=== PATIENT | female | born 1945 | race Caucasian/White ===

== ENCOUNTER 2016-07-06 05:15 | Inpatient (IN) | payer MEDICARE, BC ==
[2016-07-06] VITALS (24 sets, daily range): BP systolic 103–127; BP diastolic 53–74; PULSE 62–112; RESP 0–19; Ht 162.6 cm; Wt 77.3 kg
[~2016-07-06] VITALS: Ht 162.6 cm; Wt 77.3 kg
[~2016-07-06 05:15] MED LIST: SAXA1TBM2 PO; SIMV40TA7
[2016-07-06] MEDS ORDERED: ROPIVACAINE 0.5 % 30 ML VIAL ONE ×2 (06:45→10:56)
[2016-07-06] MEDS ORDERED: GELATIN SIZE 100 SPONGE ONE (06:45)
[2016-07-06] MEDS ORDERED: POVIDONE IODINE 10% 28.4 GM OINT ONE (06:46)
[2016-07-06] MEDS ORDERED: POLYMYXIN/BACITRACIN 1L IRRIG ONE (06:46)
--- NOTE | 2016-07-06 06:48 | HPN ---
Date/Time of Note Date/Time of Note DATE: 07/06/16 TIME: 06:48 Interval H&P Admission Note Pt. seen H&P reviewed: No system changes ISMAEL AKINS MD Jul 06, 2016 06:48
[2016-07-06] MEDS ORDERED: ROCURONIUM 50 MG INJ ONE ×2 (07:00→08:41)
[2016-07-06] MEDS ORDERED: LOSA50TA6 PO (07:12)
[2016-07-06] MEDS ORDERED: CYCL-319 PO (07:12)
[2016-07-06] MEDS ORDERED: HYDR-2457 PO (07:12)
[2016-07-06] MEDS ORDERED: AMLO5TAB4 PO (07:12)
[2016-07-06] MEDS ORDERED: FENTAnyl 50 MCG/ML VIAL ONE ×2 (07:18→11:09)
[2016-07-06] MEDS: THROMBIN 5000 UNIT VIAL ONE ×2 (08:32→11:15)
[2016-07-06] MEDS ORDERED: LIDOCAINE 2% (SDV) 5 ML INJ ONE (08:41)
[2016-07-06] MEDS ORDERED: CEFAZOLIN 1 GM INJ ONE (08:41)
[2016-07-06] MEDS ORDERED: NEOSTIGMINE 3 MG/3 ML SYRINGE ONE (08:41)
[2016-07-06] MEDS ORDERED: SUCCINYLCHOLINE CHLORIDE 100 MG/5 ML SYG IV ONE (08:41)
[2016-07-06] MEDS ORDERED: PROPOFOL 40 ML ONE (08:41)
[2016-07-06] MEDS ORDERED: GLYCOPYRROLATE 1 MG INJ ONE (08:41)
[2016-07-06] MEDS ORDERED: CA CHLORIDE 10% 10 ML SYRINGE ONE (09:18)
[2016-07-06] MEDS ORDERED: PIPER-TAZO 3.375 GM IV (PMX) 100 ML ONE (10:17)
[2016-07-06] MEDS ORDERED: ONDANSETRON 4 MG INJ IV PRN ×2 (11:00→12:30)
[2016-07-06] MEDS ORDERED: LABETALOL HCL 20MG INJ IV PRN (11:00)
[2016-07-06] MEDS ORDERED: FENTAnyl 50 MCG/ML VIAL IV PRN ×2 (11:00)
[2016-07-06] MEDS ORDERED: DIPHENHYDRAMINE 50 MG INJ IV PRN (11:00)
[2016-07-06] MEDS ORDERED: METOCLOPRAMIDE 10 MG INJ IV PRN (11:00)
[2016-07-06] MEDS ORDERED: MEPERIDINE 25 MG INJ IV PRN (11:00)
[2016-07-06] MEDS ORDERED: HYDROmorphONE (0.2 MG/ML) 10ML SYG IV PRN ×3 (11:00)
[2016-07-06] MEDS ORDERED: hydrALAzine 20 MG INJ IV PRN (11:00)
[2016-07-06] MEDS ORDERED: PHENYLephrine (100 MCG/ML) 5ML SYG ONE (11:02)
[2016-07-06] MEDS: SOD CHLORIDE 0.9% 1,000 ML IV SCH ×3 (12:10→22:10)
--- NOTE | 2016-07-06 12:23 | RADRPT ---
PROCEDURE: Left ankle x-ray study CLINICAL INDICATION: Left ankle fusion TECHNIQUE: 5 images obtained intraoperatively during a left ankle arthrodesis fusion procedure. COMPARISON: None available FINDINGS: 5 images were obtained intraoperatively for localization during a left ankle surgical procedure. Brice rgical arthrodesis device overlying left ankle . 90 seconds of fluoroscopy used during the procedure IMPRESSION: 5 intraoperative images and 90 seconds of fluoroscopy used during left ankle fusion procedure .Edilberto Rashid MD, MD Date Time Electronically viewed and signed by .Edilberto Rashid MD, on 07/06/2016 12:22 .B/
[2016-07-06] MEDS ORDERED: BISACODYL 10 MG SUPP PR PRN (12:30)
[2016-07-06] MEDS ORDERED: DIPHENHYDRAMINE 25 MG CAP PO PRN (12:30)
[2016-07-06] MEDS ORDERED: OXYCODONE/ACETAMINOPHEN (5/325) TAB PO PRN (12:30)
[2016-07-06] MEDS ORDERED: morphine 10 MG INJ IV PRN (12:30)
[2016-07-06] MEDS: HYDROmorphONE 0.2 MG/ML PCA IV SCH ×2 (12:50→20:17)
--- NOTE | 2016-07-06 14:29 | OPR ---
DATE OF OPERATION: 07/06/2016 PREOPERATIVE DIAGNOSES: 1. 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 2. Avascular necrosis of the lateral talar dome. POSTOPERATIVE DIAGNOSES: 1. 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 2. Avascular necrosis of the lateral talar dome. OPERATION PERFORMED: 1. Bone marrow aspiration, left iliac crest. 2. Oblique fibular osteotomy and removal of the distal fibular bony portion. 3. Arthrodesis of the left ankle with a 10 x 150 mm right valor TTC nail and 4 screws. 4. Insertion of BMAC Ignite and Augment plus ground up fibular bone graft into the arthrodesis site to facilitate healing. 5. Use of fluoroscopy to verify position and alignment of the haile and screws in the fusion. 6. Short-leg cast. Extremely complex difficult procedure because the patient had a previous triple arthrodesis. She wa s in a lot of hindfoot valgus. In addition, with avascular necrosis it made very difficult to obtai n good surfaces for fusion and the anatomy was quite altered because of her previous surgery. Becau se of this complex necessitating additional of 90 minutes of time (22) SURGEON: Ismael Cabrera MD BELTING INSPECTOR: Molly Perez MD SECOND WAREHOUSE RECEIVING CLERK: Napoleon Cabrera MD NEXT WAREHOUSE RECEIVING CLERK: Marlo Miller. ANESTHESIA: General with popliteal block. TOURNIQUET TIME: 145 minutes. DESCRIPTION OF PROCEDURE: The patient taken to the operating room and placed supine. Popliteal blo ck was given. Satisfactory general anesthesia was administered, 2 grams Ancef given intravenously. The left leg was prepped and draped in the usual manner. We used a sterile tourniquet. We put a b ump under the iliac crest. A small jaki was made over the iliac crest. Needle was inserted and 60 mL of bone marrow aspirate was obtained. The wounds were irrigated with antibiotic solution and bola sed with 4-0 black nylon. A sterile dressing was applied. Gloves were changed. Tourniquet was inflated to 250 mmHg. Incision was made over the distal fibula, being careful not to join to the previous lateral incision per her plastic surgeon. Dissection car ried down to subcutaneous tissue. The periosteum was elevated anteriorly and posteriorly. The liga ments were released along the fibula until the entire fibular could be removed will be used for bone graft later on. An extensive amount of soft tissue was removed from the ankle joint. Laminar spre ader was inserted. Osteophytes were removed from the ankle anteriorly and posteriorly. The area of avascular necrosis of the lateral talar dome was noted. Using different angled curettes on the paradise us first, all the articular cartilage was removed and all the avascular area was removed. To ensure that we got all the bone or cartilage off and medialize the ankle, a second incision was made in me dial malleolus. Periosteum was elevated. We removed all articular cartilage of the medial malleolu s, medial aspect of the talar dome and across the talus. A bur was then used to remove approximatel y 1 mm of bone across the talus from medial to lateral. Multiple "spot welds" were placed with the bur to facilitate healing. The entire cyst in the avascular area was removed. Multiple drill holes were made with 0.045 K-wire and multiple osteotome cuts were made as well. Similarly, the tibia wa s prepared in the same way using first a curet to remove all the arthritic cartilage, then a bur to remove the bone, multiple spot welds were made and then drill holes were placed with 0.045 K-wire an d then an osteotome was used to shingle the tibia as well. The fluoroscope was brought in. We used the bone mill to grind up the fibula. We mixed the fibula with PRP and bone marrow aspirate and then added Augment to try to get it to heal since she has trou ble healing bones. The guide pin was inserted for the [facility] nail. We medialized the ankle all the way to get her out of valgus. We were able to stay within the shaft of the distal ti jazz and still stay in the calcaneus. It was checked in AP and lateral positions. Good position was noted. A TTC nail was drilled to about 200 mm. We felt it would be too tight to put a nail that h igh. We drilled it to 10.5 mm so we could put a 10 mm x 150 mm haile. Prior to putting in the haile, o ur bone marrow slurry mixture was placed on the tibia and the talus. The haile was inserted, checked in AP and lateral planes and excellent position was obtained. The dynamic screw was placed proximal ly in the tibia from medial and lateral, checked in both planes and looked good. The calcaneal scre w was then placed from lateral to medial, and also looked good in both planes. The haile was then com pressed with a special compression device. Our calcaneal pin was then inserted after being drilled. We packed further bone graft into both sides and then put the calcaneal pin in and then put our ca lcaneal screw in and then our subtalar screw. When we were done, final fluoroscopic view showed good position and alignment of the screws and the haile in the AP and lateral position with excellent compression off the arthrodesis site. A cap was p laced on the haile distally and verified it was in. Final fluoroscopic views looked good in both plan es. The tourniquet was released. Bone graft was then added anteriorly, medially and laterally and posteriorly. The deep tissues were closed medially and laterally after irrigating with antibiotic s olution over a lap, sponge. These were closed with 0 PDS. Subcutaneous tissues closed with 2-0 and 3-0 undyed Vicryl, and the skin was closed with 4-0 black nylon interrupted. Compression dressing was applied as well as short-leg cast in neutral position. At the end of procedure, the sponge and needle count was correct. Patient tolerated procedure well The iliac crest wound was closed as mentioned with 4-0 black nylon and then 4 x 4 was placed over it as well as an ABD and Tegaderm. The cast was then split in the recovery room. WAREHOUSE RECEIVING CLERK ORTHOPEDIC SURGEON DURING THE PROCEDURE: An assistant art director orthopedic surgeon was used at my r equest. The assistant art director helped with exposure. The assistant art director also inserted the nail while I held the ankle reduced in proper position. Without a skilled orthopedic surgeon assisting me, this could not have been performed and should be compensated appropriately. Dictated By: ISMAEL MACK/BELL Conf#: [id number] DID#: [id number]
[2016-07-06] MEDS ORDERED: AMLODIPINE 5 MG TAB PO ONE (17:30)
[2016-07-06] MEDS: PIPER-TAZO 3.375 GM IV (PMX) 100 ML IVPB SCH (17:34)
[2016-07-06] MEDS ORDERED: GLUCAGON 1 MG INJ IM PRN (18:30)
[2016-07-06] MEDS ORDERED: DEXTROSE 50% 50 ML SYRINGE IV PRN ×2 (18:30)
[2016-07-06] MEDS ORDERED: GLUCOSE GEL 15 GRAM TUBE PO PRN ×2 (18:30)
[2016-07-06] MEDS ORDERED: GLUCOSE GEL 15 GRAM TUBE BUCCAL PRN (18:30)
--- NOTE | 2016-07-06 18:49 | CONS ---
DATE OF ADMISSION: 07/06/2016 DATE OF CONSULTATION: TYPE OF CONSULTATION: Medical. Thank you, Dr. Cabrera, for asking me to participate in the medical management of this patient. REASON FOR CONSULTATION: To manage the patient's hypertension, diabetes mellitus and hyperlipidemia . HISTORY OF PRESENT ILLNESS: This 71-year-old female is now postop a left ankle surgery. The rosibel poole underwent a surgery today performed by Dr. Kevyn Cabrera. The patient had an arthrodesis of the left ankle with a 10 x 50 mm right Valor TTC nail and 4 screws. The patient has a history of previo us left ankle surgery. She has had pain in her left ankle after a triple arthrodesis for degenerati ve joint disease and posterior tibial tendon dysfunction done in 07/2015. Postoperatively, the ronald trimble's wound had recurrent drainage and was found to have an infection. She was taken again to [facility] on 02/29/2016 for hardware removal, debridement and was closed by a plastic surgeon. She was on 8 weeks of IV antibiotics. The patient said that she did develop an infection with C difficile. Sarah najera is under the care of an infectious disease specialist in [place] named Dr. Cohen. The whitney cortes did undergo the above-mentioned surgery today by Dr. Cabrera. She is awake and alert. Her sean n is under control. She denies any chest pain or shortness of breath. PAST MEDICAL HISTORY: Hypertension, type 2 diabetes mellitus, hyperlipidemia. ALLERGIES: SHE HAS AN ALLERGY TO ASPIRIN. MEDICATIONS: Include the followin. Simvastatin 40 mg a day. 2. Losartan 50 mg twice a day. 3. Amlodipine 5 mg a day. 4. Simvastatin 40 mg a day. 5. Kombiglyze 2.10/999 mg twice a day. PAST SURGICAL HISTORY: Right ankle triple arthrodesis in 2009, multiple surgeries on left ankle as mentioned above. FAMILY HISTORY: Father of emphysema at 61. Mother at 92 of unknown causes. She had 1 si yajaira with chronic leukemia, 1 with diabetes mellitus and 1 with hypertension. SOCIAL HISTORY: She is , does not drink alcohol, never smoked. PHYSICAL EXAMINATION: GENERAL: At this time reveals a well-developed female in no apparent distress. VITAL SIGNS: Temperature 98, pulse is 77, respirations 16, blood pressure 113/62, O2 saturation of 98% on 2 L nasal cannula. HEAD: Normocephalic. EYES: Extraocular muscles intact. NOSE AND MOUTH: Normal. NECK: Supple. No neck vein distention. LUNGS: Clear to auscultation. HEART: Regular rhythm. No murmurs, gallops or rubs. ABDOMEN: Soft, nontender. EXTREMITIES: She has a large cast on her left ankle and foot. Right leg, there is no edema. IMPRESSION: This patient is now postoperative a left ankle surgery including arthrodesis and a nail insertion. She is awake and alert, and her pain is under control. I will manage the patient's hyp ertension, type 2 diabetes mellitus and hyperlipidemia. PLAN: 1. Resume some routine medications. 2. Check labs in the morning. 3. Postop left ankle arthrodesis surgery protocol. 4. I will follow the patient along with you medically. Dictated By: DENIZ MCCALLUM MD, ND/BELL Conf#: [id number] DID#: [id number]
[2016-07-06] MEDS: SENNA/DOCUSATE NA (8.6MG/50MG) TAB PO SCH (20:19)
[2016-07-06] MEDS: ATORVASTATIN 20 MG TAB PO SCH (20:19)
[2016-07-06] MEDS: OXYCODONE/ACETAMINOPHEN (5/325) TAB PO PRN (20:22)
[2016-07-06] MEDS: INSULIN ASPART [NOVOLOG] 3 ML PEN SC SCH (20:25)
[2016-07-07] MEDS: PIPER-TAZO 3.375 GM IV (PMX) 100 ML IVPB SCH ×4 (00:15→17:31)
[2016-07-07] MEDS: OXYCODONE/ACETAMINOPHEN (5/325) TAB PO PRN ×4 (00:15→14:59)
[2016-07-07] MEDS: SOD CHLORIDE 0.9% 1,000 ML IV SCH ×2 (00:18→17:33)
[2016-07-07] MEDS: ACCUCHECK XX SCH (00:29)
[2016-07-07 05:34] VITALS: BP 105/62; PULSE 95; RESP 19
[2016-07-07 05:49] LABS: ALBUMIN 3.2 g/dl (3.3-4.9); POTASSIUM 4.2 mmol/L (3.5-5.1)
[2016-07-07 05:51] LABS: BILIRUBIN,INDIRECT 0.4 mg/dl (0-1.1); BILIRUBIN,TOTAL 0.4 mg/dl (0.2-1.3); CREATININE 0.87 mg/dl (0.44-1.00)
[2016-07-07 05:52] LABS: ALBUMIN/GLOBULIN RATIO 1.14
[2016-07-07 05:53] LABS: CALCIUM 8.5 mg/dl (8.4-10.2)
[2016-07-07 06:23] LABS: BASOPHILS % 0.2 % (0.0-2.0); EOSINOPHILS # 0.1 10^3/ul (0.0-0.5); EOSINOPHILS % 1.1 % (0.0-7.0); HEMATOCRIT 25.3 % (37.0-47.0); HEMOGLOBIN 8.5 g/dl (12.0-16.0); LYMPHOCYTES # 0.7 10^3/ul (0.8-2.9); LYMPHOCYTES % 11.9 % (15.0-51.0); MEAN CORPUSCULAR HGB CONC 33.6 g/dl (32.0-37.0); MEAN CORPUSCULAR VOLUME 83.3 fl (82.0-101.0); MEAN PLATELET VOLUME 8.1 fl (7.4-10.4); MONOCYTE # 0.8 10^3/ul (0.3-0.9); MONOCYTES % 13.1 % (0.0-11.0); NEUTROPHIL # 4.5 10^3/ul (1.6-7.5); NEUTROPHILS % 73.7 % (39.0-77.0); PLATELET COUNT 195 10^3/UL (140-440); RED BLOOD COUNT 3.04 10^6/ul (4.20-5.40); RED CELL DISTRIBUTION WIDTH 15.1 % (11.5-14.5); UNCORRECTED WBC 6.1 10^3/ul (4.8-10.8); WHITE BLOOD COUNT 6.1 10^3/ul (4.8-10.8)
[2016-07-07 06:37] LABS: CONDITION 1; LH ANALYZER COMMENTS 1
--- NOTE | 2016-07-07 07:13 | PN ---
Date/Time of Note Date/Time of Note DATE: 07/07/16 TIME: 07:08 Assessment/Plan VTE Prophylaxis VTE Prophylaxis Intervention: anti-embolic stocking, other Lines/Catheters IV Catheter Type (from Nrsg): Peripheral IV Urinary Cath still in place: No Assessment/Plan Chief Complaint/Hosp Course #1 POD1 s/p left ankle TTC fusion nail placement #2 DM type 2 Problems: Assessment/Plan - Doing well - Hgb 8.5, will monitor for now as asymptomatic, hx of pernicious anemia - Continue close blood glucose monitoring, goal <150 - NWB LLE - PT to begin this AM - Wean from FIELD PIPELINES SUPERVISOR when patient comfortable with converting to orals - Likely d/c tomorrow - Xarelto for DVT prophy - Zosyn for postop prophy until conversion to orals -Appreciate Dr. Brody's assistance. - Subjective 24 Hr Interval Summary Free Text/Dictation Pt. did well overnight. Moderate pain was reasonably controlled with FIELD PIPELINES SUPERVISOR. Blood Glucose <162. Denies CP,SOB, contralateral leg pain. Exam/Review of Systems Vital Signs Vitals Vital Signs Date Time Temp Pulse Resp B/P Pulse Ox O2 Delivery O2 Flow Rate FiO2 07/07/16 05:34 98.3 95 19 105/62 100 Nasal Cannula 2.0 Intake and Output 07/06/16 07/06/16 07/07/16 15:00 23:00 07:00 Intake Total 1500 ml 300 ml 2600 ml Output Total 550 ml 1200 ml Balance 950 ml 300 ml 1400 ml Exam LLE elevated on wedge. Cast fitting well. Moderate amount of strikethrough on the posterior aspect of the cast. Toes are wwp. Wiggling in DF/PF without difficulty, no pain with passive stretch. Sensation intact in SP/DP/Tibial. Constitutional: alert, oriented, well developed Cardiovascular: regular rate and rhythm Results Result Diagram: 07/07/16 0450 07/07/16 0450 Results 24 hrs Laboratory Tests Test 07/06/16 18:23 07/06/16 20:24 07/07/16 04:50 Bedside Glucose 123 162 Alanine Aminotransferase (ALT/SGPT) 25 Albumin 3.2 L Albumin/Globulin Ratio 1.14 Alkaline Phosphatase 59 Anion Gap 12 Aspartate Amino Transf (AST/SGOT) 16 Basophils # 0.0 Basophils % 0.2 Blood Morphology Comment Blood Urea Nitrogen 11 Calcium Level 8.5 Carbon Dioxide Level 27 Chloride Level 102 Creatinine 0.87 Direct Bilirubin 0.00 Eosinophils # 0.1 Eosinophils % 1.1 Globulin 2.80 Glucose Level 128 Hematocrit 25.3 L Hemoglobin 8.5 L Indirect Bilirubin 0.4 Lymphocytes # 0.7 L Lymphocytes % 11.9 L Mean Corpuscular Hemoglobin 28.0 L Mean Corpuscular Hemoglobin Concent 33.6 Mean Corpuscular Volume 83.3 Mean Platelet Volume 8.1 Monocytes # 0.8 Monocytes % 13.1 H Neutrophils # 4.5 Neutrophils % 73.7 Nucleated Red Blood Cells # 0.0 Nucleated Red Blood Cells % 0.0 Platelet Count 195 Potassium Level 4.2 Red Blood Count 3.04 L Red Cell Distribution Width 15.1 H Sodium Level 137 Total Bilirubin 0.4 Total Protein 6.0 L White Blood Count 6.1 Medications Medications Current Medications Senna/Docusate Sodium (Senokot-S) 1 tab BID PO Last administered on 07/06/16 20:19; Admin Dose 1 TAB; Start 07/06/16 at 21:00 Magnesium Hydroxide (Milk Of Mag) 30 ml HS PO ; Start 07/08/16 at 21:00 Bisacodyl 10 mg 10 mg DAILY PRN [place] CONSTIPATION; Start 07/06/16 at 12:30 Sodium Chloride (NS) 1,000 ml @ 100 mls/hr Q10H IV Last administered on 00:18; Admin Dose 100 MLS/HR; Start 07/06/16 at 12:10 Oxycodone/ Acetaminophen (Percocet (5/ 325)) 1 tab Q4H PRN PO MILD PAIN LEVEL 1 -3 Last administered on 07/07/16 00:20; Admin Dose 1 TAB; Start 07/06/16 at 12: 30 Oxycodone/ Acetaminophen (Percocet (5/ 325)) 2 tab Q4H PRN PO MODERATE PAIN; Start 07/06/16 at 12:30 Morphine Sulfate (morphine) 5 mg Q4H PRN IV PAIN LEVEL 7-10; Start 07/06/16 at 12:30 Ondansetron HCl (Zofran Inj) 4 mg Q4H PRN IV NAUSEA AND/OR VOMITING; Start at 12:30 Diphenhydramine HCl (Benadryl) 25 mg Q4H PRN PO ITCHING; Start 07/06/16 at 12: 30 Hydromorphone HCl MG/HR CONTINUOUS RATE ... Q4PCA IV Last administered on 20:17; Admin Dose 6 MG; Start 07/06/16 at 12:30 Piperacillin Sod/ Tazobactam Sod (Zosyn 3.375gm/ 100 ml (Pmx)) 100 ml @ 200 mls /hr Q6 IVPB Last administered on 07/07/16 05:18; Admin Dose 200 MLS/HR; Start 07/06/16 at 18:00 Atorvastatin Calcium (Lipitor) 20 mg HS PO Last administered on 07/06/16 20:19 ; Admin Dose 20 MG; Start 07/06/16 at 21:00 Diagnostic Test (Pha) (Accucheck) 1 ea 02 XX ; Start 07/07/16 at 02:00 Miscellaneous Information 1 ea NOTE XX ; Start 07/06/16 at 18:30 Glucose (Glutose) 15 gm Q15M PRN PO DECREASED GLUCOSE; Start 07/06/16 at 18:30 Glucose (Glutose) 22.5 gm Q15M PRN PO DECREASED GLUCOSE; Start 07/06/16 at 18: 30 Dextrose (D50w Syringe) 25 ml Q15M PRN IV DECREASED GLUCOSE; Start 07/06/16 at 18:30 Dextrose (D50w Syringe) 50 ml Q15M PRN IV DECREASED GLUCOSE; Start 07/06/16 at 18:30 Glucagon (Glucagen) 1 mg Q15M PRN IM DECREASED GLUCOSE; Start 07/06/16 at 18:30 Glucose (Glutose) 15 gm Q15M PRN BUCCAL DECREASED GLUCOSE; Start 07/06/16 at 18 :30 ISMAEL AKINS MD Jul 07, 2016 07:13
[2016-07-07] MEDS: INSULIN ASPART [NOVOLOG] 3 ML PEN SC SCH ×4 (07:50→22:00)
[2016-07-07 08:39] VITALS: BP 118/64; RESP 18
[2016-07-07] MEDS: metFORMIN 500 MG TAB PO SCH ×2 (08:44→17:09)
--- NOTE | 2016-07-07 08:47 | CONS ---
Date/Time of Note Date/Time of Note DATE: 07/07/16 TIME: 08:44 Assessment/Plan Assessment/Plan Chief Complaint/Hosp Course 1. She is one day postop left ankle fusion. 2. Her diabetes and blood pressure are under control. 3. She is anemic. She has a history of pernicious anemia and gets regular vitamin B12 injections. I will check her iron level today. Problems: Consultation Date/Type/Reason Admit Date/Time Jul 06, 2016 at 05:15 Initial Consult Date 24 HR Interval Summary Free Text/Dictation she is one day postop a left ankle fusion. She has no complaints. Constitutional: improved, no complaints Exam/Review of Systems Vital Signs Vitals Vital Signs Date Time Temp Pulse Resp B/P Pulse Ox O2 Delivery O2 Flow Rate FiO2 07/07/16 08:39 98.2 96 18 118/64 99 07/07/16 05:34 Nasal Cannula 2.0 Intake and Output 07/06/16 07/06/16 07/07/16 15:00 23:00 07:00 Intake Total 1500 ml 300 ml 2600 ml Output Total 550 ml 1200 ml Balance 950 ml 300 ml 1400 ml Exam She has a large cast on her left foot ankle and lower leg. Constitutional: alert, oriented, well developed Psych: nl mood/affect, no complaints Respiratory: clear to auscultation, normal air movement Cardiovascular: regular rate and rhythm Gastrointestinal: soft Musculoskeletal: nl extremities to inspection Results Result Diagram: 07/07/16 0450 07/07/16 0450 Results 24 hrs Laboratory Tests Test 07/06/16 18:23 07/06/16 20:24 07/07/16 04:50 07/07/16 07:35 Bedside Glucose 123 162 109 Alanine Aminotransferase (ALT/SGPT) 25 Albumin 3.2 L Albumin/Globulin Ratio 1.14 Alkaline Phosphatase 59 Anion Gap 12 Aspartate Amino Transf (AST/SGOT) 16 Basophils # 0.0 Basophils % 0.2 Blood Morphology Comment Blood Urea Nitrogen 11 Calcium Level 8.5 Carbon Dioxide Level 27 Chloride Level 102 Creatinine 0.87 Direct Bilirubin 0.00 Eosinophils # 0.1 Eosinophils % 1.1 Globulin 2.80 Glucose Level 128 Hematocrit 25.3 L Hemoglobin 8.5 L Indirect Bilirubin 0.4 Lymphocytes # 0.7 L Lymphocytes % 11.9 L Mean Corpuscular Hemoglobin 28.0 L Mean Corpuscular Hemoglobin Concent 33.6 Mean Corpuscular Volume 83.3 Mean Platelet Volume 8.1 Monocytes # 0.8 Monocytes % 13.1 H Neutrophils # 4.5 Neutrophils % 73.7 Nucleated Red Blood Cells # 0.0 Nucleated Red Blood Cells % 0.0 Platelet Count 195 Potassium Level 4.2 Red Blood Count 3.04 L Red Cell Distribution Width 15.1 H Sodium Level 137 Total Bilirubin 0.4 Total Protein 6.0 L White Blood Count 6.1 Medications Medications Current Medications Senna/Docusate Sodium (Senokot-S) 1 tab BID PO Last administered on 07/06/16 20:19; Admin Dose 1 TAB; Start 07/06/16 at 21:00 Magnesium Hydroxide (Milk Of Mag) 30 ml HS PO ; Start 07/08/16 at 21:00 Bisacodyl 10 mg 10 mg DAILY PRN [place] CONSTIPATION; Start 07/06/16 at 12:30 Sodium Chloride (NS) 1,000 ml @ 100 mls/hr Q10H IV Last administered on 00:18; Admin Dose 100 MLS/HR; Start 07/06/16 at 12:10 Oxycodone/ Acetaminophen (Percocet (5/ 325)) 1 tab Q4H PRN PO MILD PAIN LEVEL 1 -3 Last administered on 07/07/16 08:28; Admin Dose 1 TAB; Start 07/06/16 at 12: 30 Oxycodone/ Acetaminophen (Percocet (5/ 325)) 2 tab Q4H PRN PO MODERATE PAIN; Start 07/06/16 at 12:30 Morphine Sulfate (morphine) 5 mg Q4H PRN IV PAIN LEVEL 7-10; Start 07/06/16 at 12:30 Ondansetron HCl (Zofran Inj) 4 mg Q4H PRN IV NAUSEA AND/OR VOMITING; Start at 12:30 Diphenhydramine HCl (Benadryl) 25 mg Q4H PRN PO ITCHING; Start 07/06/16 at 12: 30 Hydromorphone HCl MG/HR CONTINUOUS RATE ... Q4PCA IV Last administered on 20:17; Admin Dose 6 MG; Start 07/06/16 at 12:30 Piperacillin Sod/ Tazobactam Sod (Zosyn 3.375gm/ 100 ml (Pmx)) 100 ml @ 200 mls /hr Q6 IVPB Last administered on 07/07/16 05:18; Admin Dose 200 MLS/HR; Start 07/06/16 at 18:00 Atorvastatin Calcium (Lipitor) 20 mg HS PO Last administered on 07/06/16 20:19 ; Admin Dose 20 MG; Start 07/06/16 at 21:00 Diagnostic Test (Pha) (Accucheck) 1 ea 02 XX ; Start 07/07/16 at 02:00 Miscellaneous Information 1 ea NOTE XX ; Start 07/06/16 at 18:30 Glucose (Glutose) 15 gm Q15M PRN PO DECREASED GLUCOSE; Start 07/06/16 at 18:30 Glucose (Glutose) 22.5 gm Q15M PRN PO DECREASED GLUCOSE; Start 07/06/16 at 18: 30 Dextrose (D50w Syringe) 25 ml Q15M PRN IV DECREASED GLUCOSE; Start 07/06/16 at 18:30 Dextrose (D50w Syringe) 50 ml Q15M PRN IV DECREASED GLUCOSE; Start 07/06/16 at 18:30 Glucagon (Glucagen) 1 mg Q15M PRN IM DECREASED GLUCOSE; Start 07/06/16 at 18:30 Glucose (Glutose) 15 gm Q15M PRN BUCCAL DECREASED GLUCOSE; Start 07/06/16 at 18 :30 DENIZ MCCALLUM MD Jul 07, 2016 08:47
[2016-07-07] MEDS: SENNA/DOCUSATE NA (8.6MG/50MG) TAB PO SCH ×2 (09:00→20:47)
[2016-07-07 11:49] LABS: IRON 16 ug/dl (35-150)
[2016-07-07] MEDS: HYDROmorphONE 0.2 MG/ML PCA IV SCH (11:51)
[2016-07-07 11:58] LABS: TOTAL IRON BINDING CAPACITY 311 ug/dl (241-421)
[2016-07-07] MEDS: RIVAROXABAN 10 MG TABLET PO SCH (17:09)
[2016-07-07] MEDS: SOD FERRIC GLUC COMPLX 125 MG in SOD CHLORIDE 0.9% 100 ML IVPB SCH (17:58)
[2016-07-07 20:01] VITALS: BP 108/61; RESP 18
[2016-07-07] MEDS: ATORVASTATIN 20 MG TAB PO SCH (20:47)
[2016-07-08] MEDS: ACCUCHECK XX SCH (02:00)
[2016-07-08] MEDS: SOD CHLORIDE 0.9% 1,000 ML IV SCH ×2 (04:10→14:10)
[2016-07-08] MEDS: HYDROmorphONE 0.2 MG/ML PCA IV SCH (05:23)
[2016-07-08 05:25] LABS: BASOPHILS % 0.2 % (0.0-2.0); EOSINOPHILS # 0.1 10^3/ul (0.0-0.5); EOSINOPHILS % 1.8 % (0.0-7.0); HEMATOCRIT 25.5 % (37.0-47.0); HEMOGLOBIN 8.5 g/dl (12.0-16.0); LYMPHOCYTES # 0.8 10^3/ul (0.8-2.9); LYMPHOCYTES % 14.3 % (15.0-51.0); MEAN CORPUSCULAR HEMOGLOBIN 28.2 pg (29.0-33.0); MEAN CORPUSCULAR HGB CONC 33.3 g/dl (32.0-37.0); MEAN CORPUSCULAR VOLUME 84.7 fl (82.0-101.0); MONOCYTE # 0.8 10^3/ul (0.3-0.9); MONOCYTES % 12.8 % (0.0-11.0); NEUTROPHIL # 4.2 10^3/ul (1.6-7.5); NEUTROPHILS % 70.9 % (39.0-77.0); PLATELET COUNT 190 10^3/UL (140-440); RED BLOOD COUNT 3.02 10^6/ul (4.20-5.40); RED CELL DISTRIBUTION WIDTH 15.4 % (11.5-14.5); UNCORRECTED WBC 5.9 10^3/ul (4.8-10.8); WHITE BLOOD COUNT 5.9 10^3/ul (4.8-10.8)
[2016-07-08 05:39] LABS: CONDITION 1; LH ANALYZER COMMENTS 1
[2016-07-08] MEDS: PIPER-TAZO 3.375 GM IV (PMX) 100 ML IVPB SCH ×3 (06:37→13:25)
--- NOTE | 2016-07-08 06:48 | PN ---
Date/Time of Note Date/Time of Note DATE: 07/08/16 TIME: 06:44 Assessment/Plan VTE Prophylaxis VTE Prophylaxis Intervention: anti-embolic stocking, other Lines/Catheters IV Catheter Type (from Nrs): Peripheral IV Urinary Cath still in place: No Assessment/Plan Chief Complaint/Hosp Course #1 POD2 s/p left ankle TTC fusion nail placement #2 DM type 2 #3 Pernicious Anemia Problems: Assessment/Plan -Doing well from ortho standpoint. Can d/c today if Dr. Brody feels she is stable medically. If needs to stay for iron supplementation, this is completely fine. -NWB LLE -Continue PT -Zosyn until d/c followed by doxycycline oral. -Xarelto for DVT prophylaxis. - Wean ENAMEL DRIER and convert to orals. Subjective 24 Hr Interval Summary Free Text/Dictation Doing well. No issues overnight. Dr. Brody began patient on IV iron supplementation due to her pernicious anemia. HGB stable at 8.5 this AM. Denies symptoms of anemia. Exam/Review of Systems Vital Signs Vitals Vital Signs Date Time Temp Pulse Resp B/P Pulse Ox O2 Delivery O2 Flow Rate FiO2 07/08/16 04:18 19 07/07/16 20:01 98.7 96 108/61 98 07/07/16 05:34 Nasal Cannula 2.0 Intake and Output 07/07/16 07/07/16 07/08/16 15:00 23:00 07:00 Intake Total 100 ml 3660 ml 900 ml Output Total 1100 ml Balance 100 ml 3660 ml -200 ml Exam Pain well controlled, Strikethrough on cast stable. Cast fitting well. Wiggling toes in DF/PF. Toes warm and well perfused. Sensation intact in DP/SP /Tibial. Constitutional: alert, oriented, well developed Psych: nl mood/affect, no complaints Results Result Diagram: 07/08/16 0415 07/07/16 0450 Results 24 hrs Laboratory Tests Test 07/07/16 07:35 07/07/16 11:05 07/07/16 11:55 07/07/16 17:08 Bedside Glucose 109 151 113 Iron Level 16 L Percent Iron Saturation 5 L Total Iron Binding Capacity 311 Test 07/07/16 21:58 07/08/16 04:15 Bedside Glucose 169 Basophils # 0.0 Basophils % 0.2 Blood Morphology Comment Eosinophils # 0.1 Eosinophils % 1.8 Hematocrit 25.5 L Hemoglobin 8.5 L Lymphocytes # 0.8 Lymphocytes % 14.3 L Mean Corpuscular Hemoglobin 28.2 L Mean Corpuscular Hemoglobin Concent 33.3 Mean Corpuscular Volume 84.7 Mean Platelet Volume 8.0 Monocytes # 0.8 Monocytes % 12.8 H Neutrophils # 4.2 Neutrophils % 70.9 Nucleated Red Blood Cells # 0.0 Nucleated Red Blood Cells % 0.0 Platelet Count 190 Red Blood Count 3.02 L Red Cell Distribution Width 15.4 H White Blood Count 5.9 Medications Medications Current Medications Senna/Docusate Sodium (Senokot-S) 1 tab BID PO Last administered on 07/07/16 20:47; Admin Dose 1 TAB; Start 07/06/16 at 21:00 Magnesium Hydroxide (Milk Of Mag) 30 ml HS PO ; Start 07/08/16 at 21:00 Bisacodyl 10 mg 10 mg DAILY PRN [place] CONSTIPATION; Start 07/06/16 at 12:30 Sodium Chloride (NS) 1,000 ml @ 100 mls/hr Q10H IV Last administered on 17:33; Admin Dose 100 MLS/HR; Start 07/06/16 at 12:10 Oxycodone/ Acetaminophen (Percocet (5/ 325)) 1 tab Q4H PRN PO MILD PAIN LEVEL 1 -3 Last administered on 07/07/16 14:59; Admin Dose 1 TAB; Start 07/06/16 at 12: 30 Oxycodone/ Acetaminophen (Percocet (5/ 325)) 2 tab Q4H PRN PO MODERATE PAIN; Start 07/06/16 at 12:30 Morphine Sulfate (morphine) 5 mg Q4H PRN IV PAIN LEVEL 7-10; Start 07/06/16 at 12:30 Ondansetron HCl (Zofran Inj) 4 mg Q4H PRN IV NAUSEA AND/OR VOMITING; Start at 12:30 Diphenhydramine HCl (Benadryl) 25 mg Q4H PRN PO ITCHING; Start 07/06/16 at 12: 30 Hydromorphone HCl MG/HR CONTINUOUS RATE ... Q4PCA IV Last administered on 05:23; Admin Dose 6 MG; Start 07/06/16 at 12:30 Piperacillin Sod/ Tazobactam Sod (Zosyn 3.375gm/ 100 ml (Pmx)) 100 ml @ 200 mls /hr Q6 IVPB Last administered on 07/08/16 06:37; Admin Dose 200 MLS/HR; Start 07/06/16 at 18:00 Atorvastatin Calcium (Lipitor) 20 mg HS PO Last administered on 07/07/16 20:47 ; Admin Dose 20 MG; Start 07/06/16 at 21:00 Diagnostic Test (Pha) (Accucheck) 1 ea 02 XX ; Start 07/07/16 at 02:00 Miscellaneous Information 1 ea NOTE XX ; Start 07/06/16 at 18:30 Glucose (Glutose) 15 gm Q15M PRN PO DECREASED GLUCOSE; Start 07/06/16 at 18:30 Glucose (Glutose) 22.5 gm Q15M PRN PO DECREASED GLUCOSE; Start 07/06/16 at 18: 30 Dextrose (D50w Syringe) 25 ml Q15M PRN IV DECREASED GLUCOSE; Start 07/06/16 at 18:30 Dextrose (D50w Syringe) 50 ml Q15M PRN IV DECREASED GLUCOSE; Start 07/06/16 at 18:30 Glucagon (Glucagen) 1 mg Q15M PRN IM DECREASED GLUCOSE; Start 07/06/16 at 18:30 Glucose 15 gm 15 gm Q15M PRN BUCCAL DECREASED GLUCOSE; Start 07/06/16 at 18:30 Ferric Sodium Gluconate Complex/ Sodium Chloride (Ferrlecit/NS) 110 ml @ 100 mls/hr Q24H IVPB Last administered on 07/07/16 17:58; Admin Dose 100 MLS/HR; Start 07/07/16 at 16:00; Stop 07/09/16 at 17:05 ISMAEL AKINS MD Jul 08, 2016 06:48
[2016-07-08] MEDS: INSULIN ASPART [NOVOLOG] 3 ML PEN SC SCH ×2 (07:50→11:40)
[2016-07-08] MEDS: metFORMIN 500 MG TAB PO SCH (08:18)
[2016-07-08] MEDS: SENNA/DOCUSATE NA (8.6MG/50MG) TAB PO SCH (08:18)
[2016-07-08 08:26] VITALS: BP 110/60; RESP 16
--- NOTE | 2016-07-08 13:21 | CONS ---
Date/Time of Note Date/Time of Note DATE: 07/08/16 TIME: 13:16 Assessment/Plan Assessment/Plan Chief Complaint/Hosp Course 1. She is 2 days postop left ankle fusion. She can be discharged home today. She will be discharged on Xarelto 10 mg a day and doxycycline 100 mg twice a day. She will follow-up with Dr. Greco and her primary care physician. 2. Her diabetes and blood pressure are under control. Her blood pressure has remained normal off her routine antihypertensive medication. I told her that she should monitor her blood pressure at home and when her blood pressure goes up above 140 systolic to restart her blood pressure medication 3. She is anemic. She has a history of pernicious anemia and gets regular vitamin B12 injections. Her iron level is low. I started her on intravenous iron yesterday. I explained to her that her iron level is low. She will get another dose of intravenous iron today. I told her we could send her home on oral iron that she will start tomorrow. I told her if she does not tolerate the oral iron then she will need to discuss this with her primary care physician and he may need to give her more intravenous iron. She understands this. Problems: Consultation Date/Type/Reason Admit Date/Time Jul 06, 2016 at 05:15 24 HR Interval Summary Free Text/Dictation She is feeling better. Constitutional: improved, no complaints Exam/Review of Systems Vital Signs Vitals Vital Signs Date Time Temp Pulse Resp B/P Pulse Ox O2 Delivery O2 Flow Rate FiO2 07/08/16 08:30 20 07/08/16 08:26 98.4 92 110/60 97 07/07/16 05:34 Nasal Cannula 2.0 Intake and Output 07/07/16 07/07/16 07/08/16 15:00 23:00 07:00 Intake Total 100 ml 3660 ml 900 ml Output Total 1100 ml Balance 100 ml 3660 ml -200 ml Exam L ankle cast . Constitutional: alert, oriented, well developed Psych: nl mood/affect, no complaints Respiratory: clear to auscultation, normal air movement Cardiovascular: nl pulses, regular rate and rhythm Musculoskeletal: nl extremities to inspection Results Result Diagram: 07/08/16 0415 07/07/16 0450 Results 24 hrs Laboratory Tests Test 07/07/16 17:08 07/07/16 21:58 07/08/16 04:15 07/08/16 07:54 Bedside Glucose 113 169 136 Basophils # 0.0 Basophils % 0.2 Blood Morphology Comment Eosinophils # 0.1 Eosinophils % 1.8 Hematocrit 25.5 L Hemoglobin 8.5 L Lymphocytes # 0.8 Lymphocytes % 14.3 L Mean Corpuscular Hemoglobin 28.2 L Mean Corpuscular Hemoglobin Concent 33.3 Mean Corpuscular Volume 84.7 Mean Platelet Volume 8.0 Monocytes # 0.8 Monocytes % 12.8 H Neutrophils # 4.2 Neutrophils % 70.9 Nucleated Red Blood Cells # 0.0 Nucleated Red Blood Cells % 0.0 Platelet Count 190 Red Blood Count 3.02 L Red Cell Distribution Width 15.4 H White Blood Count 5.9 Test 07/08/16 12:01 Bedside Glucose 138 Medications Medications Current Medications Senna/Docusate Sodium (Senokot-S) 1 tab BID PO Last administered on 07/08/16 08:18; Admin Dose 1 TAB; Start 07/06/16 at 21:00 Magnesium Hydroxide (Milk Of Mag) 30 ml HS PO ; Start 07/08/16 at 21:00 Bisacodyl 10 mg 10 mg DAILY PRN [place] CONSTIPATION; Start 07/06/16 at 12:30 Sodium Chloride (NS) 1,000 ml @ 100 mls/hr Q10H IV Last administered on 17:33; Admin Dose 100 MLS/HR; Start 07/06/16 at 12:10 Oxycodone/ Acetaminophen (Percocet (5/ 325)) 1 tab Q4H PRN PO MILD PAIN LEVEL 1 -3 Last administered on 07/07/16 14:59; Admin Dose 1 TAB; Start 07/06/16 at 12: 30 Oxycodone/ Acetaminophen (Percocet (5/ 325)) 2 tab Q4H PRN PO MODERATE PAIN; Start 07/06/16 at 12:30 Morphine Sulfate (morphine) 5 mg Q4H PRN IV PAIN LEVEL 7-10; Start 07/06/16 at 12:30 Ondansetron HCl (Zofran Inj) 4 mg Q4H PRN IV NAUSEA AND/OR VOMITING; Start at 12:30 Diphenhydramine HCl 25 mg 25 mg Q4H PRN PO ITCHING; Start 07/06/16 at 12:30 Piperacillin Sod/ Tazobactam Sod (Zosyn 3.375gm/ 100 ml (Pmx)) 100 ml @ 200 mls /hr Q6 IVPB Last administered on 07/08/16 06:37; Admin Dose 200 MLS/HR; Start 07/06/16 at 18:00 Atorvastatin Calcium (Lipitor) 20 mg HS PO Last administered on 07/07/16 20:47 ; Admin Dose 20 MG; Start 07/06/16 at 21:00 Diagnostic Test (Pha) (Accucheck) 1 ea 02 XX ; Start 07/07/16 at 02:00 Miscellaneous Information 1 ea NOTE XX ; Start 07/06/16 at 18:30 Glucose (Glutose) 15 gm Q15M PRN PO DECREASED GLUCOSE; Start 07/06/16 at 18:30 Glucose (Glutose) 22.5 gm Q15M PRN PO DECREASED GLUCOSE; Start 07/06/16 at 18: 30 Dextrose (D50w Syringe) 25 ml Q15M PRN IV DECREASED GLUCOSE; Start 07/06/16 at 18:30 Dextrose (D50w Syringe) 50 ml Q15M PRN IV DECREASED GLUCOSE; Start 07/06/16 at 18:30 Glucagon (Glucagen) 1 mg Q15M PRN IM DECREASED GLUCOSE; Start 07/06/16 at 18:30 Glucose 15 gm 15 gm Q15M PRN BUCCAL DECREASED GLUCOSE; Start 07/06/16 at 18:30 Ferric Sodium Gluconate Complex/ Sodium Chloride (Ferrlecit/NS) 110 ml @ 100 mls/hr Q24H IVPB Last administered on 07/07/16 17:58; Admin Dose 100 MLS/HR; Start 07/07/16 at 16:00; Stop 07/09/16 at 17:05 DENIZ MCCALLUM MD Jul 08, 2016 13:21
--- NOTE | 2016-07-08 13:22 | PDOCDIS ---
Discharge Instructions CONDITION Patient Condition: Good HOME CARE INSTRUCTIONS: Diet Instructions: Reduced CalorieSpecial Diet: REGULAR ACTIVITY: Activity Restrictions: Slowly Increase Activity Rest between Activity Do not Drive Do not operate Machinery Partial Weight Bearing Bathing Restrictions: Sponge Bath FOLLOW UP/APPOINTMENTS Appointments DENIZ Coe MD Jul 08, 2016 13:22
[2016-07-08] MEDS: SOD FERRIC GLUC COMPLX 125 MG in SOD CHLORIDE 0.9% 100 ML IVPB SCH (14:56)
[2016-07-08] MEDS: RIVAROXABAN 10 MG TABLET PO SCH (16:18)
[2016-07-08] MEDS ORDERED: MAGNESIUM HYDROXIDE 30ML CUP PO SCH (21:00)
--- NOTE | 2016-07-08 22:49 | DS ---
DATE OF ADMISSION: 07/06/2016 DATE OF DISCHARGE: 07/08/2016 DISCHARGE DIAGNOSES: 1. Avascular necrosis and degenerative joint disease, left ankle. 2. Low iron count. 3. Status post previous infection in the subtalar joint and previous triple arthrodesis. SURGERY: 1. Left oblique fibular osteotomy. 2. Arthrodesis of the left ankle with an intramedullary haile. 3. Insertion of bone marrow aspirate and bone graft into the arthrodesis site. HISTORY OF PRESENT ILLNESS: The patient is a 71-year-old female with pain in the left ankle. Lashon p revealed avascular necrosis of lateral talar dome with collapse and degenerative change, admitted now for fusion. She previously had a triple arthrodesis, developed a postoperative wound infection, has now cleared. She has been cleared medically with no signs of infection in her ankle, admitted now for fusion. PAST MEDICAL HISTORY: See the history and physical record. PHYSICAL EXAMINATION: Normal except the orthopedic exam, which revealed multiple healed incisions i n her ankle, pain diffusely about the ankle and loss of motion in the subtalar, talonavicular and ca lcaneocuboid joints. Laboratory revealed a low hematocrit and low iron. EKG was stable. Chest x-ray was clear. HOSPITAL COURSE: The patient was cleared medically, taken to the operating room, underwent above-me ntioned procedure. Postoperatively, she had 2 iron infusions for her low iron. She was on antibiot ics and pain medication. She was up ambulating, nonweightbearing on crutches. She was able to be d ischarged on iron, pain medication, doxycycline 100 mg b.i.d. for 10 days and blood thinners. To be followed in the office in 1 week. During the course of her treatment in the hospital, Dr. Vicente Mccallum treated her medical problems. Dictated By: ISMAEL AKINS MD RF/BELL Conf#: [id number] DID#: [id number] CC: VICENTE MCCALLUM MD;*[facility]*
== END 2016-07-08 16:35 | disposition home or self-care (01) | DRG 493 ==
LOC: REC 05:15 → MS1 13:13
PROVIDERS: ADMIT Orthopaedic Surgery; ATTEND Orthopaedic Surgery
PROC: 0SGG0KZ Fusion of Left Ankle Joint with Nonautologous Tissue Substitute, Open Approach (ICD-10-PCS; 2016-07-06)
PROC: 0SGG07Z Fusion of Left Ankle Joint with Autologous Tissue Substitute, Open Approach (ICD-10-PCS; 2016-07-06)
PROC: 0QBK0ZZ Excision of Left Fibula, Open Approach (ICD-10-PCS; 2016-07-06)
PROC: 07DR3ZZ Extraction of Iliac Bone Marrow, Percutaneous Approach (ICD-10-PCS; 2016-07-06)
PROC: 0SGG04Z Fusion of Left Ankle Joint with Internal Fixation Device, Open Approach (ICD-10-PCS; principal; 2016-07-06 07:00)
DX: M19.072 Primary osteoarthritis, left ankle and foot (principal); M87.875 Other osteonecrosis, left foot; D51.0 Vitamin B12 deficiency anemia due to intrinsic factor deficiency; E11.9 Type 2 diabetes mellitus without complications; I10 Essential (primary) hypertension; E78.5 Hyperlipidemia, unspecified; M21.072 Valgus deformity, not elsewhere classified, left ankle
CPT/HCPCS: 73610; 80053; 82728; 82962; 83540; 85025; 86999; 97116; 97162; 97530; C1713; J0330; J0690; J1170; J1815; J2175; J2370; J2405; J2543; J2710; J2795; J2916; J3010; J7030